=== PATIENT | male | born 1990 | race Caucasian/White ===

== ENCOUNTER 2020-06-18 08:05 | Emergency (ER) | payer SELFPAY ==
[~2020-06-18] VITALS: Ht 182.9 cm; Wt 204.1 kg
[2020-06-18 10:26] VITALS: BP 146/81
== END 2020-06-18 10:27 | disposition home or self-care (01) ==
LOC: ER 08:13
DX: M79.662 Pain in left lower leg (principal); R25.2 Cramp and spasm; M79.89 Other specified soft tissue disorders
CPT/HCPCS: 93970; 99283